=== PATIENT | male | born 1970 | race Caucasian/White ===

== ENCOUNTER 2017-08-29 08:30 | Emergency (ER) | payer OTHER ==
[2017-08-29 08:36] VITALS: BP 144/88; PULSE 90; TEMP 97.8; BMI 22.2
[2017-08-29] MEDS ORDERED: KETOROLAC TROMETHAMINE 60 MG/2 ML VIAL IM ONE (09:22)
[2017-08-29] MEDS ORDERED: KETOROLAC TROMETHAMINE 60 MG/2 ML VIAL ONE (09:23)
--- NOTE | 2017-08-29 09:38 | PDOC ---
History of Present Illness - General Chief Complaint: Chronic pain Stated Complaint: BACK PAIN, ABD PAIN Time Seen by Provider: 08/29/17 09:12 History Source: Patient Exam Limitations: No Limitations - History of Present Illness Initial Comments: CHIEF COMPLAINT: 47 y/o male with PMH crohn's c/o neck pain that is preventing him from sleep x 1 week. 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 He is unsure of how he hurt his neck but it started hurting on the right side about 1 week ago and it's hurting so much he can't sleep. He hasn't taken anything for the pain. He denies f/c, n/v/d, ALEXANDER, numbness/tingling in upper extremities. Vital signs on arrival are within normal limits. Past History - Past Medical History Allergies/Adverse Reactions: Allergies Allergy/AdvReac Type Severity Reaction Status Date / Time No Known Allergies Allergy Verified 08/29/17 08:36 Home Medications: Ambulatory Orders Adalimumab [Humira Crohn's] 40 mg SQ ASDIR 05/23/15 Cyclobenzaprine HCl [Flexeril -] 10 mg PO HS #7 tablet 08/29/17 CVA: No COPD: No GI Disorders: Yes (CHROHN'S DISEASE) - Surgical History GI Surgery: Yes (COLON SX) - Suicide/Smoking/Psychosocial Hx Smoking History: Never smoked Number of Cigarettes Smoked Daily: 0 Information on smoking cessation initiated: No Hx Alcohol Use: No Drug/Substance Use Hx: No Review of Systems - Review of Systems Able to Perform ROS?: Yes Constitutional: No: Symptoms Reported HEENTM: No: Symptoms Reported Respiratory: No: Symptoms reported Cardiac (ROS): No: Symptoms Reported ABD/GI: No: Symptoms Reported Musculoskeletal: Yes: Symptoms Reported, Neck Pain (right sided) Neurological: No: Symptoms reported *Physical Exam - Vital Signs Last Vital Signs Temp Pulse Resp BP Pulse Ox 97.8 F 90 18 144/88 100 08/29/17 08:33 08/29/17 08:33 08/29/17 08:33 08/29/17 08:33 08/29/17 08:33 - Physical Exam General Appearance: Yes: Nourished, Appropriately Dressed HEENT: positive: EOMI, SHERIE Neck: positive: Tender, Tender lateral (TTP of right cervical paravertebral muscles. Full range of motion of cervical spine. No sign of toricollis.). negative: Tender midline Musculoskeletal: negative: Vertebral Tenderness Neurologic: positive: civil structural engineer II-XII NML intact, Motor Strength 5/5. negative: Numbness ED Treatment Course - Medications Given in the ED: ED Medications Discontinued Medications Generic Name Dose Route Start Last Admin Trade Name Tayla PRN Reason Stop Dose Admin Ketorolac Tromethamine 60 mg 08/29/17 09:22 08/29/17 09:27 Toradol Injection - IM 08/29/17 09:23 60 mg ONCE ONE Administration Medical Decision Making - Medical Decision Making A/P: 47 y/o male with right sided musculoskeletal neck pain x 1 week. Will give IM toradol and send rx for flexeril to take at night to his pharmacy. Suggested he take tylenol for the pain and use heat and massage to affected area. Pt instructed to f/u with is doctor and return to the ER with any worsening or concerning symptoms. The patient verbalizes understanding of all instructions, has no further questions and is awaiting discharge. *DC/Admit/Observation/Transfer Diagnosis at time of Disposition: Neck muscle strain Qualifiers: Encounter type: initial encounter Qualified Code(s): S16.1XXA - Strain of muscle, fascia and tendon at neck level, initial encounter - Discharge Dispostion Disposition: HOME Condition at time of disposition: Good - Referrals Referrals: Remy Metzger [Primary Care Provider] - - Patient Instructions Printed Discharge Instructions: DI for Cervical Muscle Strain Additional Instructions: Discharge Instructions: -Take tylenol for pain -A prescription for a muscle relaxer was sent to your pharmacy; take at night to help you sleep -Stretch, apply heat and massage to affected area -Follow up with your doctor -Return to the ER with any worsening or concerning symptoms - Post Discharge Activity
== END 2017-08-29 09:51 | disposition home or self-care (01) ==
LOC: JERFT 08:30
PROC: 3E0233Z Introduction of Anti-inflammatory into Muscle, Percutaneous Approach (ICD-10-PCS; principal; 2017-08-29)
DX: S16.1XXA Strain of muscle, fascia and tendon at neck level, initial encounter (principal); X50.1XXA Overexertion from prolonged static or awkward postures, initial encounter; Y93.89 Activity, other specified; Y92.89 Other specified places as the place of occurrence of the external cause; Y99.0 Civilian activity done for income or pay
CPT/HCPCS: 99281-25